=== PATIENT | female | born 1965 | race Caucasian/White ===

== ENCOUNTER 2016-12-12 10:59 | Inpatient (IN) | payer OTHER ==
--- NOTE | ~2016-12-12 | CO ---
Unit #: [id number] #: [id number] Patient: CRISPIN PRICE [id number] [address] [place], [place] [address] [id number] I MR#: [id number] NAME: CRISPIN PRICE ROOM: [facility] Age: 51 Sex: F Admission Date: 12/12/2016 : 1965 Attending Physician: Jahaira Esquivel M.D. Primary Care Physician: No Primary Care Physician Requesting Physician: Jahaira Esquivel M.D. Consultation Date: 12/15/2016 CONSULTATION REPORT REASON FOR CONSULTATION Treatment for malaria. HISTORY OF PRESENT ILLNESS Patient is a 51-year-old female who is from [facility], came in two weeks ago, admitted with two-day history of fevers, chills, some nausea and back pain. All of the history is from the chart and my discussion with Dr. 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 It looks like she was diagnosed with malaria in June in [facility] and was treated for five days with Malarone. There is some question of tick-borne disease. Workup was started. From the notes it looks like the malaria smear was positive. She is on doxycycline and finished three days of Malarone therapy. Today she is feeling better. Back pain is still there but has improved, has not had any fevers or chills. No nausea, vomiting, diarrhea, cough, congestion, chest pain, shortness of air (1) dizziness. PAST MEDICAL HISTORY Asthma. SOCIAL HISTORY Noncontributory except as mentioned above. She is from [facility] and came into .. two weeks ago. PAST SURGICAL HISTORY Remarkable for breast reduction. ALLERGIES No known drug allergies. CURRENT MEDICATIONS Antibiotics include doxycycline and three days of Malarone. PHYSICAL EXAMINATION GENERAL: On examination comfortable, sitting up. VITAL SIGNS: Temperature 98.5, T-max 101.9 upon admission, pulse 80, respiration 18, blood pressure 102/53. HEENT: Unremarkable. NECK: Supple. CHEST: Clear to auscultation. HEART: Normal S1 and S2. ABDOMEN: Soft, nontender. No organomegaly. EXTREMITIES: Show no edema. Unit #: [id number] #: [id number] Patient: CRISPIN PRICE DIAGNOSTIC STUDIES IMAGING: Chest x-ray negative. CT head negative. Renal ultrasound unremarkable. LABORATORY: BUN 8, creatinine 0.7, AST 45, it was 61, ALT 101 which was 116, alkaline phosphatase 90, total bilirubin 1.6, it was 2.2 upon admission, lactic acid was 1.3, WBC of 4 which was 1.9 upon admission, hemoglobin 9.2, platelets 97. Influenza screen negative. Urinalysis unremarkable, culture negative so far. ASSESSMENT Malaria. PLAN Will go ahead and discontinue doxycycline as the patient responded to malaria treatment and from histological perspective and symptomatology and per notes positive malaria smear, that should be the diagnosis for which three days of Malarone is appropriate. She would be advised to follow up with her primary care physician or as an outpatient with infectious disease at [facility] for further evaluation and possible speciation of the malaria for further treatment. No antibiotics needed upon discharge. The patient is okay to discharge from and infectious disease point of view. I would like to thank Dr. Esquivel for asking us to participate in the care of this patient. Dictated by... Shayna Vasquez TD: 12/16/2016 13:21 JOB #: [id number] CONSULTATION REPORT Page 1 of 1 X Sebas Hoffman MD CONSULTATION REPORT
--- NOTE | ~2016-12-12 | CT71 ---
[facility] A Service of [facility] RADIOLOGY TEXT RESULTS PATIENT: CRISPIN PRICE LOCATION: [facility] : 61 UNIT #: [id number] AGE: [address]: Aleksandar Hays MD SEX: F ORDER DR: [id number] [place] [id number] [facility]. [place], [place] [address] [id number] E MR#: [id number] Acc #: [id number] NAME: CRISPIN PRICE : 1965 SEX: F STUDY DATE/TIME: 12/12/2016 12:49 UNIT: [facility] ROOM: STUDY DESCRIPTION: CT Head Wo Contrast Attending Physician: Aleksandar Hays M.D. Ordering Physician: Aleksandar Hays M.D. Primary Care Physician: No Primary Care Physician MEDICAL IMAGING REPORT This report is preliminary unless electronic signature is present EXAM CT head without contrast 12/12/2016 INDICATION Fever for 3 days. The patient also reports a headache. She is from [facility] and has been in the [place] 15 days. She has history of malaria. TECHNIQUE Axial CT images were obtained from vertex to skull through skull base. No intravenous contrast material was administered. This CT exam was performed with one or more of the following radiation dose reduction techniques: automatic exposure control, adjustment of mA and/or kV according to patient size, and iterative reconstruction. FINDINGS Ventricular size and configuration are normal. There is no evidence of acute infarct or hemorrhage. There are no extra-axial fluid collections. No mass lesion or mass effect is seen. There are no skull fractures. IMPRESSION Normal noncontrast head CT. Dictated by... Prabha Ortiz M.D. THIS IS AN ELECTRONICALLY VERIFIED REPORT Prabha Ortiz M.D. at 12/12/2016 6:44 PM ELPIDIO/ben [facility] A Service of [facility] RADIOLOGY TEXT RESULTS PATIENT: CRISPIN PRICE [id number] [birth year] UNIT #: [id number] AGE: [address]: Aleksandar Hays MD SEX: F ORDER DR: TD: 12/12/2016 16:42 JOB #: [id number] MEDICAL IMAGING REPORT Page 1 of 1 COPY
--- NOTE | ~2016-12-12 | CR72 ---
[facility] A Service of [facility] RADIOLOGY TEXT RESULTS PATIENT: CRISPIN PRICE LOCATION: [facility] : 61 UNIT #: [id number] AGE: [address]: Aleksandar Hays MD SEX: F ORDER DR: [id number] [facility] [address] [facility]. [place], [place] [address] [id number] E MR#: [id number] Acc #: [id number] NAME: CRISPIN PRICE : 1965 SEX: F STUDY DATE/TIME: 12/12/2016 11:42 UNIT: [facility] ROOM: STUDY DESCRIPTION: CR Chest Single View Portable Attending Physician: Aleksandar Hays M.D. Ordering Physician: Aleksandar Hays M.D. Primary Care Physician: No Primary Care Physician MEDICAL IMAGING REPORT This report is preliminary unless electronic signature is present EXAM Portable chest. HISTORY SUPPLIED Fever, shortness of breath for 3 days. FINDINGS An AP portable view is obtained. The cardiovascular configuration is normal. The lungs are clear. CONCLUSION Negative portable chest. Dictated by... Salazar Mcrae M.D. THIS IS AN ELECTRONICALLY VERIFIED REPORT Salazar Mcrae M.D. at 12/12/2016 5:02 PM MÓNICA/zacarias TD: 12/12/2016 15:33 JOB #: [id number] MEDICAL IMAGING REPORT Page 1 of 1 COPY
--- NOTE | ~2016-12-12 | DS ---
Unit #: [id number] #: [id number] Patient: CRISPIN PRICE [id number] [address] [address] [id number] I MR#: [id number] NAME: CRISPIN PRICE ROOM: 314 Age: 51 Sex: F Admission Date: 12/12/2016 : 1965 Discharge Date: 12/15/2016 Attending Physician: Jahaira Esquivel M.D. DISCHARGE SUMMARY PRINCIPAL DIAGNOSES 1. Sepsis secondary to recurrent malaria. 2. Musculoskeletal left flank pain. 3. Medication-induced nausea and vomiting. 4. Pancytopenia secondary to malaria, now resolved. 5. Mild transaminitis. 6. Mild protein malnutrition. CONSULTANTS Dr. Hoffman, Infectious Disease. PROCEDURES 1. Chest x-ray on December 12, 2016, which was normal. 2. CT of the head without contrast on December 12, 2016, which was normal. 3. Bilateral renal ultrasound on December 12, 2016, with mild right renal cortical thinning. CLINICAL HISTORY AND HOSPITAL COURSE Ms. Daly is a nice 51-year-old female visiting from [facility] who presented to the emergency department with complaints of fever and left flank pain. Please refer to History and Physical for further details. Patient does have a history of malaria status post treatment earlier this year. Given her history, she was subsequently admitted. Patient was empirically started on Malarone, in addition to doxycycline given there was questionable concern about tick bite. Infectious Disease was consulted. Blood smear did indeed reveal malaria. The patient completed a three-day course of Malarone and feels much better afterwards. She did have associated nausea and vomiting secondary to the pill, but this is also resolved. She also had associated pancytopenia, but on the day of discharge, this is significantly improved. White blood cell count is up to 4 and hemoglobin is stable at 9.9. Platelet count is still running about 100,000 but can be followed up as an outpatient. She will be discharged home today. DISCHARGE CONDITION Stable. DISCHARGE STATUS Discharge to home. DISCHARGE MEDICATIONS 1. Ibuprofen 800 mg p.o. t.i.d. p.r.n. for pain, number given 20. 2. Ventolin inhaler 1 puff daily. Unit #: [id number] #: [id number] Patient: CRISPIN PRICE DISCHARGE INSTRUCTIONS 1. Patient is instructed to follow a regular diet. 2. She can increase her activity as tolerated. FOLLOWUP Patient will follow up with her primary care provider upon return to [facility]. Time spent on discharge 38 minutes. Dictated by... Jahaira Esquivel M.D. Bryant TD: 12/17/2016 21:33 JOB #: [id number] DISCHARGE SUMMARY Page 1 of 1 X Jahaira Esquivel MD X DISCHARGE SUMMARY
--- NOTE | ~2016-12-12 | US77 ---
[facility] A Service of [facility] RADIOLOGY TEXT RESULTS PATIENT: CRISPIN PRICE LOCATION: [facility] 314 : 61 UNIT #: [id number] AGE: [address]: Jahaira Esquivel MD SEX: F ORDER DR: [id number] [facility] [address] [place], [place] [address] [id number] I MR#: [id number] Acc #: [id number] NAME: CRISPIN PRICE : 1965 SEX: F STUDY DATE/TIME: 12/12/2016 20:33 UNIT: [address] ROOM: [facility] STUDY DESCRIPTION: US Kidney Bilateral Complete Attending Physician: Osvaldo Rizvi M.D. Ordering Physician: Ed Doctor [id number] [facility] Primary Care Physician: Primary Care Physician No MEDICAL IMAGING REPORT This report is preliminary unless electronic signature is present EXAM Bilateral renal ultrasound INDICATION Flank pain for the past 3 days. PROCEDURE Truong-scale, color Doppler, spectral imaging kidneys and bladder. COMPARISON None. FINDINGS Right kidney measures 9.6 cm. Cortical thickness is 9 mm. Left kidney measures 9.6 cm and cortical thickness 1.3 cm. Unremarkable bladder. IMPRESSION Mild right renal cortical thinning may be related to technical factors or possibly represent early changes of chronic renal disease. Otherwise, the kidneys are normal. Dictated by... Zain Naik M.D. THIS IS AN ELECTRONICALLY VERIFIED REPORT Zain Naik M.D. at 12/17/2016 7:25 AM EED/sampson TD: 12/13/2016 09:24 JOB #: [id number] [facility] A Service of [facility] RADIOLOGY TEXT RESULTS PATIENT: CRISPIN PRICE LOCATION: [facility] 314 : 61 UNIT #: [id number] AGE: [address]: Jahaira Esquivel MD SEX: F ORDER DR: MEDICAL IMAGING REPORT Page 1 of 1 COPY
--- NOTE | ~2016-12-12 | HP ---
Unit #: [id number] #: [id number] Patient: CRISPIN PRICE [id number] [address] [address] [id number] I MR#: [id number] NAME: CRISPIN PRICE ROOM: 314 Age: 51 Sex: F Admission Date: 12/12/2016 : 1965 Attending Physician: Roxana Gordon M.D. Primary Care Physician: No Primary Care Physician HISTORY AND PHYSICAL CHIEF COMPLAINT Fever. HISTORY OF PRESENT ILLNESS The patient is a 51-year-old female who presented to the emergency room complaining of the fever. The patient was diagnosed with the malaria back in June at [facility] and received the treatment for five days. The patient came to the [facility] two weeks ago. The patient was doing fine till this morning when the patient started having fever associated with the chills for last three days. The patient also complains of the left flank pain and denies any nausea, vomiting, urinary symptoms. The patient is being admitted for the workup for the malaria and started on the Malarone (atovaquone 250 mg and proguanil 100 mg). PAST MEDICAL HISTORY History of asthma. PAST SURGICAL HISTORY History of a past breast reduction. HOME MEDICATION Inhalers and Motrin. ALLERGIES No known drug allergies. SOCIAL HISTORY No history of smoking, alcohol or any illicit drug abuse. FAMILY HISTORY Reviewed and none. REVIEW OF SYSTEMS Fourteen-point review of symptoms performed and only pertinent positive findings as described above, remaining are negative. PHYSICAL EXAMINATION GENERAL APPEARANCE: On examination the patient is lying on a bed not in acute distress. VITAL SIGNS: Temperature 102.3, pulse 114, respiratory rate 16, blood pressure 125/61, sating 97% at room air. HEENT: Head atraumatic, normocephalic. Pupils equal, round and reacting to light and accommodation. Extraocular movements are intact. Unit #: [id number] #: [id number] Patient: CRISPIN PRICE NECK: Supple. LUNGS: Decreased air entry at the bases. HEART: Regular rate and rhythm. ABDOMEN: Soft. Positive bowel sounds. Lujz-cucus-xqprs pain. EXTREMITIES: No cyanosis. No clubbing. DIAGNOSTIC STUDIES LABORATORY DATA: Troponin less than 0.05. Flu screen is negative and lactic acid is 1.3 and sodium 136, potassium 3.5, chloride 102, bicarb 24, glucose 97, BUN 15, creatinine 0.9, AST is 61, ALT 116, total bilirubin is 2.2 and indirect bilirubin is 1.7, WBC 1.9, hemoglobin 11.7, platelets 100, neutrophils 84.7. UA shows 1+ urobilinogen. IMAGING: Chest x-ray shows negative portable chest. CT of the head shows normal noncontrast head CT. ASSESSMENT 1. (1) . 2. History of malaria. 3. Pancytopenia. PLAN Plan to admit the patient to the inpatient. Patient has already been started with Malarone four tablets p.o. daily for three days and will check the tick panels also and will put the patient on the doxycycline 100 mg p.o. b.i.d. empirically until the tick panel is back and check the malaria thick and thin spear and ID has been already consulted by the ER and further recommendations will follow. Dictated by Shayna Basilio/beatriz TD: 12/12/2016 20:16 JOB #: [id number] HISTORY AND PHYSICAL Page 1 of 1 X ROXANA GORDON MD X HISTORY AND PHYSICAL
--- NOTE | ~2016-12-12 | EKG ---
PATIENT: CRISPIN PRICE UNIT #: [id number] Ventricular Rate: 98 BPM Atrial Rate: 98 BPM P-R Interval: 136 ms QRS Duration: 84 ms Q-T Interval: 326 ms QTC Calculation(Bezet): 416 ms P Woodruff: 30 degrees Calculated R Woodruff: 42 degrees Calculated T Woodruff: 12 degrees Diagnosis Line: Normal sinus rhythm Diagnosis Line: Normal ECG Diagnosis Line: No previous ECGs available Diagnosis Line: Confirmed by KASSANDRA DEE MD ([id number]) on Diagnosis Line: 12/12/2016 2:04:46 PM INTERPRETING MD: LEILA BURK
[2016-12-12 12:07] LABS: POC - CKMB <1.0 ng/mL (0.0-7.9); POC - TROPONIN <0.05 ng/mL (<=0.05)
[2016-12-12 12:12] LABS: INFLUENZA A NEG (NEG); INFLUENZA B NEG (NEG)
[2016-12-12 12:24] LABS: BASOPHIL% 0.7 % (0-2.5); EOSINOPHIL% 0.8 % (0.0-7.0); HEMATOCRIT 35.4 % (35.0-45.0); HEMOGLOBIN 11.7 gm/dL (12.0-16.0); LYMPHOCYTE# 0.2 X10e3 (1.0-3.5); LYMPHOCYTE% 12.7 % (17.0-45.0); MEAN CELL VOLUME 92.1 FL (83-96); MEAN CORPUSCULAR HEMOGLOBIN 30.5 PG (28-34); MEAN CORPUSCULAR HGB CONC 33.2 g/dL (30-36); MEAN PLATELET VOLUME 8.4 FL (6.5-11.5); MONOCYTE% 1.1 % (3.0-12.0); NEUTROPHIL# 1.6 X10e3 (1.5-7.1); NEUTROPHIL% 84.7 % (40-75); RED BLOOD COUNT 3.85 X10e (3.90-5.30); RED CELL DISTRIBUTION WIDTH 14.6 % (11.0-15.5); WHITE BLOOD COUNT 1.9 X10e3 (4.0-10.5)
[2016-12-12 12:29] LABS: ALBUMIN SERUM 4.3 g/dL (3.5-5.0); BILIRUBIN, DIRECT 0.5 mg/dL (0.0-0.2); BILIRUBIN,INDIRECT 1.7 mg/dL (0.0-0.9); BILIRUBIN,TOTAL 2.2 mg/dL (0.2-2.0); BUN/CREATININE RATIO 16.66; CREATININE SERUM 0.9 mg/dL (0.6-1.4); POTASSIUM 3.5 mmol/L (3.5-5.1); PROTEIN TOTAL SERUM 7.8 g/dL (6.0-8.3)
[2016-12-12 13:00] LABS: PLATELET COUNT 100 X10e3 (140-420)
[2016-12-12 13:01] LABS: DIFF IND YES
[2016-12-12] MEDS ORDERED: ALBUTEROL17 GM PO (13:28)
[2016-12-12 13:33] LABS: ANISOCYTOSIS MOD; NUCLEATED RED BLOOD CELL 1 /100 (0); PLATELET ESTIMATE DECREASED (NORMAL); RBC NORMAL YES
[2016-12-12 13:34] LABS: POIKILOCYTOSIS SL
[2016-12-12 14:56] LABS: URINE SOURCE CLEAN CATCH
[2016-12-12 15:16] LABS: URINE APPEARANCE CLEAR; URINE BILIRUBIN NEG (NEG); URINE BLOOD NEG (NEG); URINE COLOR YELLOW; URINE GLUCOSE NEG (NEG); URINE KETONE NEG (NEG); URINE LEUKOCYTE ESTERASE NEG (NEG); URINE NITRATE NEG (NEG); URINE PH 5.5 (5-8); URINE PROTEIN NEG (NEG); URINE SPECIFIC GRAVITY 1.007 (1.003-1.035)
[2016-12-12 15:17] LABS: CULTURE INDICATED? NO
[2016-12-14 19:29] LABS: HEMATOCRIT 29.2 % (35.0-45.0); HEMOGLOBIN 9.9 gm/dL (12.0-16.0); MEAN CELL VOLUME 91.5 FL (83-96); MEAN CORPUSCULAR HGB CONC 33.8 g/dL (30-36); MEAN PLATELET VOLUME 8.3 FL (6.5-11.5); RED BLOOD COUNT 3.19 X10e (3.90-5.30); RED CELL DISTRIBUTION WIDTH 15.1 % (11.0-15.5)
[2016-12-14 19:56] LABS: ALBUMIN SERUM 3.4 g/dL (3.5-5.0); BILIRUBIN,TOTAL 1.9 mg/dL (0.2-2.0); BUN/CREATININE RATIO 14.28; CALCIUM SERUM 8.6 mg/dL (8.4-10.2); CREATININE SERUM 0.7 mg/dL (0.6-1.4); GLOM FILT RATE Estimated 98.9 mL/min (>60)
[2016-12-15 06:42] LABS: HEMATOCRIT 27.4 % (35.0-45.0); HEMOGLOBIN 9.2 gm/dL (12.0-16.0); MEAN CELL VOLUME 91.6 FL (83-96); MEAN CORPUSCULAR HEMOGLOBIN 30.7 PG (28-34); MEAN CORPUSCULAR HGB CONC 33.5 g/dL (30-36); RED BLOOD COUNT 2.99 X10e (3.90-5.30)
[2016-12-15 07:11] LABS: ALBUMIN SERUM 3.1 g/dL (3.5-5.0); BILIRUBIN,TOTAL 1.6 mg/dL (0.2-2.0); BUN/CREATININE RATIO 11.42; CALCIUM SERUM 8.6 mg/dL (8.4-10.2); CREATININE SERUM 0.7 mg/dL (0.6-1.4); GLOM FILT RATE Estimated 98.9 mL/min (>60); POTASSIUM 3.7 mmol/L (3.5-5.1); PROTEIN TOTAL SERUM 6.5 g/dL (6.0-8.3)
[2016-12-15] MEDS ORDERED: IBUPROFEN (14:55)
[2016-12-15] MEDS ORDERED: IBUPROFEN PO (14:56)
[2016-12-19 01:47] LABS: A. PHAGOCYTOPHILUM IGG <1:64 (<1:64); A. PHAGOCYTOPHILUM IGM <1:20 (<1:20); E. CHAFFEENSIS AB IGG <1:64 (<1:64); E. CHAFFEENSIS AB IGM <1:20 (<1:20); Q FEER IGM PHASE 2 NEGATIVE (()); Q FEVER IGG PHASE 1 NEGATIVE (()); Q FEVER IGG PHASE 2 NEGATIVE (()); Q FEVER IGM PHASE 1 NEGATIVE (())
== END 2016-12-15 18:25 | disposition home or self-care (01) | DRG 872 ==
LOC: CED 10:59 → C3A PCU 15:15 → CED 15:15 → C3A PCU 15:15 → CED 20:15 → C3A PCU 20:15
PROVIDERS: Emergency Medicine; Internal Medicine
DX: A41.9 Sepsis, unspecified organism (principal); D61.818 Other pancytopenia; B54 Unspecified malaria; E44.1 Mild protein-calorie malnutrition; R10.9 Unspecified abdominal pain; R74.0 Nonspecific elevation of levels of transaminase and lactic acid dehydrogenase [LDH]; R11.2 Nausea with vomiting, unspecified; T50.905A Adverse effect of unspecified drugs, medicaments and biological substances, initial encounter
CPT/HCPCS: 36415; 70450; 71010; 76770; 80048; 80053; 80076; 81003; 82553; 83605; 84484; 84703; 85025; 85027; 86638; 86666; 87040; 87207; 87804; 93005; 94760; 96360; 99285; J2405; J2550

== ENCOUNTER 2017-01-24 20:38 | Emergency (ER) | payer SELFPAY ==
--- NOTE | ~2017-01-24 | ER ---
Unit #: [id number] #: [id number] Patient: CRISPIN WILDE [id number] [address] [place], [place] [address] [id number] E MR#: [id number] NAME: CRISPIN WILDE ROOM: Sex: F Age: 51 : 1965 Service Date: 01/24/2017 Attending Physician: Marito Vasquez M.D. Primary Care Physician: No Primary Care Physician EMERGENCY DEPT PHYSICIAN NOTE HISTORY Please see the written T sheet for the full details of the encounter. Ms. Wilde is a 51-year-old [facility] woman who presented to the emergency department tonight with the chief complaint of fevers, chills, sweating and generalized body aches consistent with previous bouts of malaria. The patient was recently treated at our facility for recurrence of malaria, was admitted to the hospital with pancytopenia and ultimately treated with Malarone for a suspected recurrence of her malaria. Over the course of the admission the patient's blood counts improved, as well as her symptoms. She was discharged home and advised to follow up with her physician in [facility] upon her return. After the patient was triaged, I went to evaluate her. She requested that a family member be used as an supply manager. She was offered use of a larry operator phone and declined, again, expressing preference for her family member. She was instructed that, should she change her mind at any time or have difficulty understanding translation, this would be available to her. As stated previously, she had signs and symptoms that made her think that she had another recurrence of her malaria. However, she was adamant that, due to concerns of cost, she did not want any testing done in the emergency department and stated that, should admission be recommended, she would also refuse this. I questioned the patient if she would be willing to at least allow us to draw blood to give her a better idea of her current blood count so she could make a more informed decision about refusing treatment. She, again, was adamant that she did not want any testing whatsoever due to concern for cost. I attempted to explain to the patient that the hospital would be willing to work with her on these matters and that should not forego treatment purely for the concern of financial reasons; however, the patient stated that under no circumstances would she be willing to change her mind or accept further treatment. As such, I informed the patient and her family that she was welcome to return to the emergency department at any time should she change her mind and desire further workup. I recommended [id number] NSAIDs to treat the patient's various aches and pains, and moreover, I explained to them that I would be giving them the contact information for Dr. Hoffman, the infectious disease physician that treated them when she was previously admitted to the hospital. I urged the patient to contact him and schedule an appointment so that, should he also believe that this was a recurrence of her malaria, she could get adequate treatment, and I expressed to her that seeing the physician in the office would likely be less expensive than an emergency department visit coupled with an admission to the Unit #: [id number] #: [id number] Patient: [facility]. The patient was agreeable to taking his contact information. It is unclear whether she intends to follow up with him. The patient was given additional standard warnings related to her decision to leave against medical advice, such as an undiagnosed condition or worsening of a chronic condition, which could cause significant impairment and/or disability if it were not treated. She acknowledged these risks and still wished to sign out against medical advice. Dictated by... Shayna Barney/rafal TD: 01/25/2017 09:09 JOB #: [id number] EMERGENCY DEPT PHYSICIAN NOTE Page 1 of 1 X Marito Vasquez MD EMERGENCY DEPARTMENT REPORT
[~2017-01-24 20:38] MED LIST: ALBUTEROL17 GM PO; IBUPROFEN; IBUPROFEN PO
== END 2017-01-24 21:28 | disposition left against medical advice (07) ==
LOC: CED 20:38
DX: R50.9 Fever, unspecified (principal); R10.9 Unspecified abdominal pain; M54.9 Dorsalgia, unspecified; J45.909 Unspecified asthma, uncomplicated; B54 Unspecified malaria; Z79.899 Other long term (current) drug therapy
CPT/HCPCS: 99283